=== PATIENT | male | born 1995 ===

== ENCOUNTER → 2017-01-17 | Outpatient (CLI) | payer BC, OTHER ==
--- NOTE | 2017-01-17 08:53 | DIAGNOSTIC IMAGING REPORT ---
LEFT ELBOW 3 VIEWS HISTORY: LEFT ELBOW PAIN COMPARISON: None. FINDINGS: There is no fracture or dislocation. Posterior soft tissue swelling. No elbow effusion. No radiopaque foreign bodies. IMPRESSION: No fractures. Posterior soft tissue swelling. Electronically signed by: Rangel Nguyen M.D. 01/17/2017 8:51 AM Dictated Date/Time: 01/17/2017 8:50 AM
== END | disposition home or self-care (01) ==
LOC: C.RDSM 08:00
PROVIDERS: ATTEND Family Medicine
DX: M25.522 Pain in left elbow (principal)